=== PATIENT | male | born 1960 | race Caucasian/White ===

== ENCOUNTER 2018-01-16 11:12 | Emergency (ER) | payer MEDICAID, SELFPAY ==
[2018-01-16 11:17] VITALS: BP 182/104; PULSE 75; RESP 18; TEMP 37; O2SAT 97
--- NOTE | 2018-01-16 11:28 | DI.RAD_ITS ---
SYMPTOM/DIAGNOSIS: R PAIN AFTER FALL PA CHEST AND RIGHT RIBS: Comparison is made with chest x-ray dated 24 March 2010. The heart size is normal. The aorta is mildly tortuous. There is no evidence of pneumothorax. Lower ribs are not well seen due to technique and patient body habitus. There is a nondisplaced fracture of the right 9th rib. No pulmonary contusion or effusion is identified. IMPRESSION: Right 9th rib fracture.
--- NOTE | 2018-01-16 11:29 | W.ED.GENAD ---
Discharge Plan Disposition Patient Disposition: HOME Condition: Improving Discharge Details Chief Complaint: Chest/Rib Clinical Impression: Right rib fracture Primary Care Provider: Curt Pinzon ED Provider: Brandon Caro Home Meds and New Rx's Prescriptions: Continue ibuprofen [Advil Liqui-Gel] 200 MG capsule 200 - 400 mg PO Q6H PRN RF: 0 Discharge Instructions Instructions: Rib Fracture (ED) Additional Instructions: You have a nondisplaced rib fracture. Please use incentive spirometer as instructed. Please use Tylenol 975 mg every 6 hours and/or ibuprofen 800 mg every 8 hours. The next dose of ibuprofen will be at approximately 6 PM. Return if you develop a fever, shortness of breath, worsening pain or any other concerns Medical Decision Making 57-year-old male states he slipped and fell on Wednesday striking his right thorax and abdomen. He did not have loss of consciousness, but has had some mild, dull, achy discomfort since that time. Today while sitting in a chair he sneezed and then developed worsening right posterior chest pain that is sharp and cramping. Denies any shortness of breath. He arrives with no fever, normal oxygenation, in some distress with moderate hypertension. Patient given ketorolac IM and referred for x-ray. Lucency identified in 2 ribs which overlap. The fracture is either in the anterior eighth rib or in the posterior lateral ninth rib. Findings consistent with nondisplaced rib fracture. Patients pain improved with ketorolac, no evidence of underlying lung injury. Management with the patient. Stable for discharge. Pot use of incentive spirometer prior to discharge HPI General Mode of arrival: ambulatory. Date/Time Provider Initiated Documentation: 01/16/18 11:13. Limitations to Documentation: no limitations. Information obtained by: patient and family. History of Present Illness 57 year old M presents to the emergency department with the chief complaint of Right lateral chest pain after fall on Wednesday, worse after sneezing, described as moderate, Quality is described as aching, and is localized to the chest and right. Patient reports no radiation. Patient started experiencing this day(s) and it has been constant. Rest improves symptom(s), Movement worsens symptoms . Patient notes denies headaches, nausea/vomiting and shortness of breath. Related Data Home Medications Medication Instructions Recorded Confirmed ibuprofen [Advil] 200 - 400 mg PO Q6H PRN tab-cap 03/17/16 01/16/18 Allergies Allergy/AdvReac Type Severity Reaction Status Date / Time HAY/GRASS Allergy Intermediate NASAL Uncoded 01/16/18 11:21 CONGESTION General Stated Complaint: Chest/Rib LITA: 3 Review of Systems Review of Systems 6 systems reviewed and otherwise - [facility] Medical History Allergic asthma Social History Smoking/Tobacco Use Status: Former Tobacco Use Surgical History Hemiarthroplasty (02/29/12) Exam Narrative Exam Narrative: GEN: awake, alert, oriented 3. Pleasant, well groomed, interactive. HEAD: Normocephalic, atraumatic ENT: Mucous membranes moist, oropharynx unremarkable, External ear exam unremarkable EYES: PERRL, EOMI NECK: Full ROM, no ANTONI, no menigismus CHEST/RESP: Tender in the right mid axillary line approximately T5-T6, clear to auscultation bilateral, no wheeze/rhonchi/rales CARDIOVASCULAR: RRR, no murmur, rub joesph. 2+ Rad pulse bilateral ABDOMEN: Soft, nontender, no mass. +Bowel sounds Back: No midline tenderness, step-off, deformity. No significant flank tenderness per EXT: Full ROM, no edema, no rash Neuro: Grossly normal neurologic exam, conversant, interactive. Psych: Speech fluent, thoughts congruent, affect normal Course Vital Signs Temperature 37.0 C 01/16/18 11:17 Pulse 75 01/16/18 11:17 Respiratory Rate 18 01/16/18 11:17 Blood Pressure 182/104 H 01/16/18 11:17 Pulse Oximetry 97 01/16/18 11:17 Temperature 37.0 C 01/16/18 11:17 Temperature Source Temporal Artery Scan 01/16/18 11:17 Pulse 75 01/16/18 11:17 Respiratory Rate 18 01/16/18 11:17 Respiratory Effort Non-Labored 01/16/18 11:20 Blood Pressure 182/104 H 01/16/18 11:17 Blood Pressure Position Sitting 01/16/18 11:17 Pulse Oximetry 97 01/16/18 11:17 Oxygen Delivery Method Room Air 01/16/18 11:17 Oxygen Flow Rate 0 01/16/18 11:17 Pain Level 7 01/16/18 11:17
[2018-01-16] MEDS: Ketorolac 30 MG/ML VIAL 60 MG IM (11:35)
--- NOTE | 2018-01-16 12:13 | DI.VRAD_ITS ---
EXAM: XR Right Ribs with PA Chest, 3 Views EXAM DATE/TIME: 01/16/2018 12:00 PM CLINICAL HISTORY: 57 years old, male; Pain; Chest wall pain; Patient HX: R pain after fall TECHNIQUE: XR Right ribs 3 views with PA chest. COMPARISON: No relevant prior studies available. FINDINGS: Lungs: Unremarkable. No consolidation. Pleural space: Unremarkable. No pleural effusion. No pneumothorax. Heart/Mediastinum: Unremarkable. No cardiomegaly. Bones/joints: Left humeral prosthesis Degenerative changes in the left glenohumeral joint Lucency identified in 2 ribs which overlap. The fracture is either in the anterior eighth rib or in the posterior lateral ninth rib. Findings consistent with nondisplaced rib fracture. IMPRESSION: Lucency identified in 2 ribs which overlap. The fracture is either in the anterior eighth rib or in the posterior lateral ninth rib. Findings consistent with nondisplaced rib fracture. Dictated and Authenticated by: Dylan Lazar MD. Ordering:ABRAHAM SHERIDAN MD
[2018-01-16 12:31] VITALS: BP 140/86; PULSE 76; RESP 14; O2SAT 97
== END 2018-01-16 12:34 | disposition home or self-care (01) ==
LOC: ER 12:47
PROVIDERS: Emergency Provider Emergency Medicine; PCP Family Medicine
DX: S22.31XA Fracture of one rib, right side, initial encounter for closed fracture (principal); W00.0XXA Fall on same level due to ice and snow, initial encounter; I10 Essential (primary) hypertension
CPT/HCPCS: 96372; 99284; 71046; 71100; J1885

== ENCOUNTER 2018-05-26 12:04 | Outpatient (CLI) | payer MEDICAID, SELFPAY ==
--- NOTE | 2018-05-26 12:01 | DI.RAD_ITS ---
SYMPTOMS/DIAGNOSIS: PAIN LEFT KNEE: Medial tibial femoral joint space narrowing, articular sclerosis and periarticular hypertrophic spurring are demonstrated. Also patellofemoral joint DJD is evident. The findings are consistent with severe left knee DJD. RIGHT KNEE: Medial tibial femoral joint space narrowing, articular sclerosis and periarticular hypertrophic spurring are demonstrated. Also patellofemoral joint DJD is evident. These findings are consistent with severe DJD.
== END 2018-05-26 12:24 ==
PROVIDERS: PCP Family Medicine; Visit Provider Physician Assistant Surgical
DX: M25.561 Pain in right knee (principal); M25.562 Pain in left knee; M17.0 Bilateral primary osteoarthritis of knee
CPT/HCPCS: 73560

== ENCOUNTER 2019-02-17 08:13 | Emergency (ER) | payer MEDICAID, SELFPAY ==
[2019-02-17 08:16] VITALS: BP 165/103; PULSE 102; RESP 20; TEMP 36.4; O2SAT 95
--- NOTE | 2019-02-17 08:31 | ED.GENADUL_ITS ---
Discharge Plan Disposition Patient Disposition: HOME Condition: Improving Discharge Details Chief Complaint: Nausea/Vomit/Diar Clinical Impression: Gastroenteritis Primary Care Provider: Curt Pinzon ED Provider: Soraya Whitt Home Meds and New Rx's Prescriptions: New promethazine 25 mg tablet 25 mg PO TID PRN (Reason: nausea and vomiting) Qty: 10 RF: 0 Discharge Instructions Instructions: Gastroenteritis (ED) Additional Instructions: Drink plenty of fluids. Rest activities as tolerated. Observe for any signs of dehydration. Use nausea medication as prescribed if needed for nausea or vomiting. If not improving in the next 1 to 2 days please have reevaluation with your primary care doctor or return to the emergency room for any alarming symptoms, increase in abdominal pain or worsening. Please follow-up with PCP for repeat of your labs as they were somewhat abnormal as discussed. Discharge Data Discharge Date/Time-TO BE ENTERED AT DEPARTURE: 02/17/19 12:22 Medical Decision Making Is a 58-year-old patient who presents for nausea vomiting diarrhea for the last 24 hours. Patient reports weight loss, decreased urine output, fatigue and malaise. Reports associated chills but no measured fevers. On exam patient does have notable epigastric discomfort but no peritoneal signs of his abdomen. Patient does have pharyngeal erythema which is likely due to several episodes of vomiting however will check strep to be sure no associated pharyngeal infection. Patient does appear mildly dehydrated. IV fluids ordered as well as baseline labs and nausea medication. Patient agrees with plan of care. Rapid strep testing is negative. Review of patient's lab results reveal elevated H&H. Likely this is hemoconcentration as patient is quite dehydrated at this time. Mild leukocytosis present 12.61. Urinalysis does reveal moderate bilirubin. Patient has persistent nausea a second dose of Zofran was provided. Second liter of IV fluid provided given patient has some persistent symptoms at this time. Patient reevaluated and mild persistent nausea especially when sitting up. Patient was provided Phenergan in attempt to obtain better nausea management. Patient did feel somewhat improved after Phenergan. Patient does still report epigastric discomfort. Patient reports mild improvement. At this time discussed with patient further evaluation including repeat labs and addition of CT scan of his abdomen to be sure there is no other significant intra-abdominal abnormality however patient would prefer discharge home at this time as he does feel mildly improved and would prefer to defer any additional imaging or testing and closely observe at home and continue to hydrate at home. Patient reports if he has persistence of symptoms, increase or worsening of symptoms he will have reevaluation in the emergency room to extend his work-up. Patient was made aware of mild abnormalities noted on labs and did encourage reevaluation with PCP for repeat lab work which I do feel is warranted although likely the lab abnormalities are likely due to hemoconcentration as patient did appear dehydrated this finding was discussed with Dr. Robles who agrees.. Patient's vital signs are improved at this time. The patient was stable and requested discharge. Prior to discharge, my usual and customary return precautions were reviewed with the patient - this included follow-up instructions and reasons to return to the Emergency Department if conditions worsens, does not improve as e xpected, or other new concerns arise. HPI General Date/Time Provider Initiated Documentation: 02/17/19 08:15 . HPI Narrative: Is a 58-year-old patient who presents to the emergency room today for complaints of nausea vomiting and diarrhea which began yesterday morning. Patient reports 24 hours of symptoms. Patient reports several episodes of vomiting approximately every 3 hours. Denies any blood in the vomitus, reports of bilious vomitus. Patient reports mild epigastric pain associated which is intermittent. Does fully relieve between episodes of vomiting. Patient does also report diarrhea which was watery, nonbloody noted yesterday, improved today. Patient denies significant headache or dizziness. Patient does report chills but no measured fever. No obvious sick contacts. Denies cough, difficulty breathing, shortness of breath. Denies significant sore throat or nasal congestion. No other concerns or complaints at this time. Patient does report he lost approximately 10 pounds in the last 24 hours. Patient denies any other concerns or complaints at this time Related Data Home Medications Medication Instructions Recorded Confirmed promethazine 25 mg PO TID PRN #10 tab 02/17/19 Previous Rx's Medication Instructions Recorded promethazine 25 mg PO TID PRN #10 tab 02/17/19 Allergies Allergy/AdvReac Type Severity Reaction Status Date / Time HAY/GRASS Allergy Intermediate NASAL Uncoded 02/17/19 08:21 CONGESTION General Stated Complaint: Nausea/Vomit/Diar LITA: 3 Review of Systems All systems reviewed & are unremarkable except as noted in HPI and below Constitutional Constitutional: Reports chills, Reports fatigue, Denies fever(s), Denies headache(s) and Reports malaise ENT Ears, Nose, Mouth, and Throat: Denies otalgia, Denies headache(s) and Denies sore throat Cardiovascular Cardiovascular: Denies dyspnea on exertion Respiratory Respiratory: Denies cough and Denies dyspnea on exertion Gastrointestinal Gastrointestinal: Reports abdominal pain, Denies constipation, Reports cramping, Reports diarrhea, Reports nausea and Reports vomiting Neurologic Neurologic: Denies headache(s) Endocrine Endocrine: Reports fatigue [facility] Medical History Allergic asthma Social History Smoking/Tobacco Use Status: Former Tobacco Use Drug use: Never Current gender identity: male Do you feel safe in your relationship?: Yes Exam Narrative Exam Narrative: CONST: Alert and alert. HENMT: Head nomocephalic, normal to inspection. Atraumatic. Hearing grossly normal. TMs appear normal bilaterally. Pharyngeal erythema present. No exudates. No uvula swelling. EYES: General normal appearance. Alignment normal. Eyelids normal. Conjunctiva normal. NECK: Normal visual inspection. FROM. Trachea midline. No Midline tenderness. No cervical lymphadenopathy CHEST: Normal insepection of the chest. RESP: Normal respiratory effort. Speaking full sentences. No cough. No audible wheezing. No retractions. GI: Bowel sounds present in all 4 quadrants. Mild epigastric pain with palpation. No other site of pain with palpation through the abdomen. No peritoneal signs, rebound or guarding. SKIN: Normal. Dry. No rashes. Course Vital Signs Vital signs: Vital Signs Temperature 36.4 C L 02/17/19 08:16 Pulse 102 H 02/17/19 08:16 Respiratory Rate 20 02/17/19 08:16 Blood Pressure 165/103 H 02/17/19 08:16 Pulse Oximetry 95 02/17/19 08:16 Temperature 36.4 C L 02/17/19 08:16 Temperature Source Skin 02/17/19 08:16 Pulse 102 H 02/17/19 08:16 Respiratory Rate 20 02/17/19 08:16 Respiratory Effort 02/17/19 08:19 Blood Pressure 165/103 H 02/17/19 08:16 Blood Pressure Position Sitting 02/17/19 08:16 Pulse Oximetry 95 02/17/19 08:16 Oxygen Delivery Method Room Air 02/17/19 08:16 Oxygen Flow Rate 0 02/17/19 08:16 Pain Level 2 02/17/19 08:16
[2019-02-17 08:40] LABS: Abs Immature Grans 0.04 k/cumm (0.0-0.09); Absolute Eosinophil Count 0.04 k/cumm (0.0-0.7); Absolute Lymphocyte Count 1.31 k/cumm (1.2-3.4); Absolute Monocyte Count 0.83 k/cumm (0.11-0.7); Absolute Neutrophil Count 10.37 k/cumm (1.2-6.7); Basophils % 0.2; Eosinophils % 0.3; HCT 56.3 % (40.0-50.0); Immature Grans % 0.3; Lymphocytes % 10.4; Mean Corp. HGB Concentration 35.3 g/dL (32.0-36.0); Mean Corpuscular Hemoglobin 30.8 pg (27.0-33.0); Mean Platelet Volume 11.7 fL (8.0-11.0); Monocytes % 6.6; Neutrophils % 82.2; Platelet Count 167 x1000/uL (130-400); RBC 6.47 m/cumm (4.50-6.00); RBC Distribution Width 13.2 % (11.8-14.1); White Blood Cell Count 12.61 k/cumm (4.4-10.8)
[2019-02-17] MEDS: Ondansetron 4 MG/2 ML VIAL IVP (08:40)
[2019-02-17] MEDS: Normal Saline 1,000 ML 1000 ML IV ×2 (08:40→10:10)
[2019-02-17] MEDS: Normal Saline Flush 10 ML SYR IVP (08:40)
[2019-02-17 08:44] LABS: Absolute Basophil Count 0.03 k/cumm (0.0-0.2)
[2019-02-17 08:49] LABS: HGB 19.9 g/dL (13.5-17.5)
[2019-02-17 08:52] LABS: ALT 57 U/L (16-63); AST 33 U/L (15-37); Albumin 3.9 g/dL (3.4-5.0); Alkaline Phosphatase 103 U/L (46-116); Anion Gap 11.1 mmol/L (3-11); BUN 18 mg/dL (7-18); Bilirubin, Total 1.1 mg/dL (0.2-1.0); CO2 27.9 mmol/L (21.0-32.0); CREATININE 0.84 mg/dL (0.70-1.30); Calcium 9.8 mg/dL (8.5-10.1); Chloride 103 mmol/L (98-107); Glucose 175 mg/dL (74-106); Lipase 221 U/L (73-393); Potassium 3.9 mmol/L (3.5-5.1); Sodium 142 mmol/L (136-145); Total Protein 7.8 g/dL (6.4-8.2)
[2019-02-17 09:04] LABS: Diff Comment RBC Morph Reviewed; RBC Morphology Normal
[2019-02-17 09:12] LABS: Bilirubin Moderate (Negative); Blood Negative (Negative); Clarity Clear (Clear); Glucose Negative (Negative); Ketones 15 mg/dL (Negative); Leukocyte Esterase Negative (Negative); Nitrite Negative (Negative); Specific Gravity >= 1.030 (1.005-1.025); Urobilinogen 0.2 EU/dL (Up TO 0.2); pH 5.5 (5-8)
[2019-02-17 09:23] LABS: Bacteria Few HPF (Negative); Casts 0-2 Hyaline LPF (Negative); Crystals Negative HPF (Negative); Epithelial Cells Rare HPF (Negative); Mucus Moderate (Negative); RBC Negative HPF (0-2); WBC 0-2 HPF (0-5)
[2019-02-17 09:24] LABS: C & S Indicated? No
[2019-02-17 09:30] VITALS: BP 159/104; PULSE 102; RESP 18; TEMP 36.4; O2SAT 95
[2019-02-17] MEDS: Ondansetron 4 MG/2 ML VIAL (10:16)
[2019-02-17 10:45] VITALS: BP 152/85; PULSE 72; RESP 15; TEMP 36.6; O2SAT 95
--- NOTE | 2019-02-17 10:48 | NUR.NOTE ---
As per the order of Edgar the negative POC strep was discarded Colleen Rodriguez
[2019-02-17] MEDS: ACETAMINOPHEN 1,000 MG/100 ML BTL 400 MG IVPB (10:59)
[2019-02-17 11:42] VITALS: BP 168/97; PULSE 78; RESP 15; TEMP 36.6; O2SAT 96
[2019-02-17 12:07] VITALS: BP 168/97; PULSE 78; RESP 15; TEMP 36.6; O2SAT 96
== END 2019-02-17 12:22 | disposition home or self-care (01) ==
PROVIDERS: Emergency Provider Physician Assistant; PCP Family Medicine
DX: R10.13 Epigastric pain (principal); K52.9 Noninfective gastroenteritis and colitis, unspecified; E86.0 Dehydration
CPT/HCPCS: 36415; 80053; 83690; 96361; 96365; 96375; 96376; 99284; 81003; 81015; 85025; 87081; J0131; J2405

== ENCOUNTER 2020-02-29 09:19 | Outpatient (CLI) | payer MEDICAID, SELFPAY ==
--- NOTE | 2020-02-29 09:00 | DI.RAD_ITS ---
EXAM: XR STANDING ALIGNMENT CLINICAL HISTORY: pre TKA alignment exam. TECHNIQUE: 2D digital imaging was performed. COMPARISON: There are advanced degenerative changes in the knees, most prominent in the medial cristina rtments where there is [id number] apposition and marginal osteophytes. Hips appear unremarkable. The level of the ankles there is a bony excrescence of the medial aspect left talus. Talar dome appe ars unremarkable. No lytic osseous lesions. FINDINGS: IMPRESSION: DATA REPOSITORY: RADIATION DOSE DELIVERED:
--- NOTE | 2020-02-29 09:00 | DI.RAD_ITS ---
EXAM: XR KNEE LT 1V CLINICAL HISTORY: pre TKA exam. TECHNIQUE: 2D digital imaging was performed. COMPARISON: CR XR knee RT 2V AP,lat from 05/26/2018 FINDINGS: Single lateral view the left knee reveals advanced osteoarthritic degenerative changes. Small joint effusion. Mild prepatellar swelling as well as some swelling anterior to the patellar ligament. No osseous lesions seen on this single view. IMPRESSION: DATA REPOSITORY: RADIATION DOSE DELIVERED:
== END 2020-02-29 09:39 ==
PROVIDERS: PCP Family Medicine; Referring Provider Family Medicine; Visit Provider Student in an Organized Health Care Education/Training Program
DX: M17.12 Unilateral primary osteoarthritis, left knee (principal); M25.462 Effusion, left knee
CPT/HCPCS: 73560; 77073

== ENCOUNTER 2020-03-29 01:01 | Outpatient (CLI) | payer MEDICAID, SELFPAY ==
[2020-03-29 09:19] LABS: HCT 53.8 % (40.0-50.0); MCH 31.9 pg (27.0-33.0); MCHC 35.3 % (32.0-36.0); MCV 90.4 fL (80-95); MPV 11.5 fL (8.0-11.0); RBC 5.95 10^6/uL (4.36-5.78); RDW 11.9 % (11.8-14.1); RDW-SD 39.7 fL; WBC 7.46 10^3/uL (4.4-10.8)
[2020-03-29 09:31] LABS: Hemoglobin A1C 5.4 % (<5.7)
[2020-03-29 09:49] LABS: Anion Gap 10.8 mmol/L (3-11); BUN 17 mg/dL (7-18); CO2 24.2 mmol/L (21.0-32.0); CREATININE 0.8 mg/dL (0.70-1.30); Calcium 9.3 mg/dL (8.5-10.1); Chloride 104 mmol/L (98-107); Glucose 126 mg/dL (74-106); Potassium 4.5 mmol/L (3.5-5.1); Sodium 139 mmol/L (136-145)
[2020-03-29 09:52] LABS: Platelet Count 122 10^3/uL (130-400)
== END 2020-03-29 01:02 | disposition home or self-care (01) ==
LOC: LBO 01:02
PROVIDERS: Visit Provider Student in an Organized Health Care Education/Training Program
DX: M25.561 Pain in right knee (principal); M25.562 Pain in left knee; M17.0 Bilateral primary osteoarthritis of knee; Z01.818 Encounter for other preprocedural examination; Z01.812 Encounter for preprocedural laboratory examination; R73.09 Other abnormal glucose
CPT/HCPCS: 36415; 80048; 85027; 83036

== ENCOUNTER 2020-03-29 01:02 | Outpatient (CLI) | payer MEDICAID, SELFPAY ==
[2020-03-30 11:31] LABS: COVID-19 RT-PCR UVMMC Result Negative (Negative)
== END 2020-03-29 01:03 | disposition home or self-care (01) ==
LOC: LBO 01:03
PROVIDERS: Visit Provider Student in an Organized Health Care Education/Training Program
DX: Z20.822 Contact with and (suspected) exposure to COVID-19 (principal); Z01.818 Encounter for other preprocedural examination
CPT/HCPCS: U0003

== ENCOUNTER 2020-04-02 06:15 | Day surgery (SDC) | payer MEDICAID, SELFPAY ==
[2020-04-02] VITALS (8 sets, daily range): BP systolic 118–150; BP diastolic 71–96; PULSE 57–72; RESP 13–24; TEMP 36–36.4; O2SAT 96–98
[2020-04-02] MEDS: Acetaminophen 500 MG TAB 1000 MG PO (06:52)
[2020-04-02] MEDS: Celecoxib 200 MG CAP 400 MG PO (06:52)
[2020-04-02] MEDS: Gabapentin 300 MG CAP PO (06:53)
[2020-04-02] MEDS: Lactated Ringers 1,000 ML 80 ML IV (07:05)
--- NOTE | 2020-04-02 07:35 | DSE_ITS ---
Documented by User: Viviana Kinneyxon 04/02/20 07:42 DS: Diagnosis Discharge Diagnosis (1) Primary osteoarthritis of left knee: Status: Acute Discharge Plan Disposition Patient Disposition: HOME Condition: Good Discharge Details Reason For Visit: Left knee DJD Attending Provider: Mitchel Sheridan Primary Care Provider: Jakub Martin Home Meds and New Rx's Prescriptions: New acetaminophen 500 mg tablet 500 mg PO Q6H PRN (Reason: pain) Qty: 60 RF: 2 aspirin 81 mg tablet,delayed release (DR/EC) 81 mg PO BID 30 Days Qty: 60 RF: 0 docusate sodium [Colace] 100 mg capsule 100 mg PO BID Qty: 30 RF: 0 gabapentin 300 mg capsule 300 mg PO QHS Qty: 14 RF: 0 ibuprofen 600 mg tablet 600 mg PO TID PRN (Reason: pain) Qty: 60 RF: 2 pantoprazole 40 mg tablet,delayed release (DR/EC) 40 mg PO DAILY Qty: 30 RF: 0 tramadol 50 mg tablet 50 mg PO Q4H PRN (Reason: severe postoperative pain) Qty: 18 RF: 0 Continued cholecalciferol (vitamin D3) 25 mcg (1,000 unit) capsule 25 mcg PO DAILY RF: 0 turmeric root extract 500 mg capsule 500 mg PO DAILY RF: 0 promethazine 25 mg tablet 25 mg PO TID PRN (Reason: nausea and vomiting) Qty: 10 RF: 0 calcium carbonate [Tums] 200 mg calcium (500 mg) Tablet,Chewable 1 mg PO PRN PRNRF: 0 Discontinued ibuprofen 600 mg tablet 1,000 mg PO PRN PRNRF: 0 Discharge Instructions Additional Instructions: Total Knee Discharge Instructions Activity: The most important activity is to walk. You should try to take short walks a few times a day. It is important that when resting you work on keeping the knee straight. Avoid putting a pillow behind the knee as this will encourage flexion. Work on range of motion exercises as provided by Physical Therapy. - Start outpatient physical therapy within 2 weeks. - You should wear the WALTER hose on both legs for 2 weeks. Dressing: You may remove the Homero wrap on your leg 2 days after your surgery and put on the WALTER stocking given to you from the hospital. Keep the surgical dressing (underneath the HOMERO wrap) in place for at least one week. After the first week it may be removed and replaced with light gauze and tape or nothing. The wound and dressing may get wet after 3 days but avoid soaking the dressing or otherwise it will need to be changed. Many people prefer covering the dressing with cling wrap (saran wrap) to minimize it from getting soaked. If it gets wet, just pat dry. If it starts to peel off then it will need to be changed. Medications: - You should take Tylenol and anti-inflammatory ibuprofen as your primary pain control medications. - You have been prescribed a stronger pain medication Tramadol for breakthrough pain, take as needed as prescribed. - You have been prescribed gabapentin to take at night. - You have also been prescribed a stomach acid reduction agent Pantoprozole to help reduce stomach acid and reflux. - You will be taking Aspirin 81mg twice a day for DVT prevention unless instructed otherwise. - If you have constipation you should take Colace (which was prescribed) or Miralax (which you may purchase [id number]). It takes most people 3-4 days to have a bowel movement. Follow-up: 2 weeks If you have any acute concerns or questions, please do not hesitate to contact the office at [phone]. You may contact Dr. Sheridan with any questions after hours through the hospital at [phone] or on his cell phone at [phone]. Equipment/Supplies: Walker Activity:: Elevate Remove Dressings/Wound Care:: Do Not Remove Shower/Bathe:: 72 hours Diet:: As Tolerated Discharge Orders Discharge Orders: Discharge Order (Routine); Ordered 04/02/20 Ordered By: Mitchel Sheridan DS: Data Vitals/I&O Vitals and I&O: Vital Signs Temperature 36.3 C L 04/02/20 06:18 Pulse 71 04/02/20 06:18 Pulse Rhythm Regular 04/02/20 06:18 Respiratory Rate 18 04/02/20 06:18 Respiratory Depth Normal 04/02/20 06:18 Blood Pressure 148/92 H 04/02/20 06:18 Pulse Oximetry 96 04/02/20 06:18 Oxygen Delivery Method Room Air 04/02/20 06:18 Oxygen Flow Rate 0 04/02/20 06:18 Pain Level 2 04/02/20 06:18 Intake & Output 04/01/20 04/01/20 04/02/20 11:59 23:59 11:59 Weight 130.635 kg 131.7 kg PFSH Medical History Allergic asthma Surgical History Hemiarthroplasty (02/29/12) LEFT HUMERAL CAP Social History Smoking/Tobacco Use Status: Current every day Tobacco Type: cigarettes Tobacco: How many years used: 30 Smoking risk assessment performed?: Yes Alcohol Intake: current Alcohol Intake frequency: 3 or more drinks per day Alcohol type: beer Drug use: Never Substance use type: does not use Details: Pt states 3-4 beers daily Current gender identity: male Do you feel safe at home: Yes Do you feel safe in your relationship?: Yes Documented by User: Mitchel Sheridan MD 04/02/20 11:32 Date of service: 04/02/20 Time of Service: 11:31 Discharge Plan Disposition Patient Disposition: HOME Condition: Good Discharge Details Reason For Visit: Left knee DJD Attending Provider: Mitchel Sheridan Primary Care Provider: Jakub Martin Home Meds and New Rx's Prescriptions: New acetaminophen 500 mg tablet 500 mg PO Q6H PRN (Reason: pain) Qty: 60 RF: 2 aspirin 81 mg tablet,delayed release (DR/EC) 81 mg PO BID 30 Days Qty: 60 RF: 0 docusate sodium [Colace] 100 mg capsule 100 mg PO BID Qty: 30 RF: 0 gabapentin 300 mg capsule 300 mg PO QHS Qty: 14 RF: 0 ibuprofen 600 mg tablet 600 mg PO TID PRN (Reason: pain) Qty: 60 RF: 2 pantoprazole 40 mg tablet,delayed release (DR/EC) 40 mg PO DAILY Qty: 30 RF: 0 tramadol 50 mg tablet 50 mg PO Q4H PRN (Reason: severe postoperative pain) Qty: 18 RF: 0 Continued cholecalciferol (vitamin D3) 25 mcg (1,000 unit) capsule 25 mcg PO DAILY RF: 0 turmeric root extract 500 mg capsule 500 mg PO DAILY RF: 0 promethazine 25 mg tablet 25 mg PO TID PRN (Reason: nausea and vomiting) Qty: 10 RF: 0 calcium carbonate [Tums] 200 mg calcium (500 mg) Tablet,Chewable 1 mg PO PRN PRNRF: 0 Discontinued ibuprofen 600 mg tablet 1,000 mg PO PRN PRNRF: 0 Discharge Instructions Additional Instructions: Total Knee Discharge Instructions Activity: The most important activity is to walk. You should try to take short walks a few times a day. It is important that when resting you work on keeping the knee straight. Avoid putting a pillow behind the knee as this will encourage flexion. Work on range of motion exercises as provided by Physical Therapy. - Start outpatient physical therapy within 2 weeks. - You should wear the WALTER hose on both legs for 2 weeks. Dressing: You may remove the Homero wrap on your leg 2 days after your surgery and put on the WALTER stocking given to you from the hospital. Keep the surgical dressing (underneath the HOMERO wrap) in place for at least one week. After the f irst week it may be removed and replaced with light gauze and tape or nothing. The wound and dressing may get wet after 3 days but avoid soaking the dressing or otherwise it will need to be changed. Many people prefer covering the dressing with cling wrap (saran wrap) to minimize it from getting soaked. If it gets wet, just pat dry. If it starts to peel off then it will need to be changed. Medications: - You should take Tylenol and anti-inflammatory ibuprofen as your primary pain control medications. - You have been prescribed a stronger pain medication Tramadol for breakthrough pain, take as needed as prescribed. - You have been prescribed gabapentin to take at night. - You have also been prescribed a stomach acid reduction agent Pantoprozole to help reduce stomach acid and reflux. - You will be taking Aspirin 81mg twice a day for DVT prevention unless instructed otherwise. - If you have constipation you should take Colace (which was prescribed) or Miralax (which you may purchase [id number]). It takes most people 3-4 days to have a bowel movement. Follow-up: 2 weeks If you have any acute concerns or questions, please do not hesitate to contact the office at [phone]. You may contact Dr. Sheridan with any questions after hours through the hospital at [phone] or on his cell phone at [phone]. Equipment/Supplies: Walker Activity:: Elevate Remove Dressings/Wound Care:: Do Not Remove Shower/Bathe:: 72 hours Diet:: As Tolerated Discharge Orders Discharge Orders: Discharge Order (Routine); Ordered 04/02/20 Ordered By: Mitchel Sheridan DS: Summary Time Spent with Patient providing and/or coordinating discharge services: Less than 30 minutes Status at Discharge Functional status at discharge: uses cane/walker Overall status at discharge: patient is progressing back to baseline Mental Status: mental status grossly normal Speech and Movement: speech and movement normal Mood: congruent mood Affect: normal affect Exam Psych Mental Status: mental status grossly normal Speech and Movement: speech and movement normal Mood: congruent mood Affect: normal affect [facility] Medical History Allergic asthma Surgical History Hemiarthroplasty (02/29/12) LEFT HUMERAL CAP Social History Smoking/Tobacco Use Status: Current every day Tobacco Type: cigarettes Tobacco: How many years used: 30 Smoking risk assessment performed?: Yes Alcohol Intake: current Alcohol Intake frequency: 3 or more drinks per day Alcohol type: beer Drug use: Never Substance use type: does not use Details: Pt states 3-4 beers daily Current gender identity: male Do you feel safe at home: Yes Do you feel safe in your relationship?: Yes
[2020-04-02] MEDS: ceFAZolin 3,000 MG in Normal Saline 100 ML 200 MG IVPB (08:11)
[2020-04-02] MEDS: Ketorolac 30 MG/ML VIAL (09:50)
[2020-04-02] MEDS: Bupivacaine 0.25% Pres-Free 30 ML VIAL (09:50)
[2020-04-02] MEDS: Normal Saline 20 ML VIAL (09:50)
--- NOTE | 2020-04-02 11:21 | ROE_ITS ---
Date of service: 04/02/20 Time of Service: 10:21 Operative Note Operative Note DATE OF PROCEDURE: 04/02/20 PRE-OP DIAGNOSIS: Left Knee Osteoarthritis POST-OP DIAGNOSIS: same PROCEDURE: Left Total Knee Replacement SURGEON: Mitchel Sheridan WELDER FITTER GAS: Viviana Colin ANESTHESIA: regional and spinal ESTIMATED BLOOD LOSS: 300 PATHOLOGY: none sent TOURNIQUET TIME: 0 COMPLICATIONS: None Patient was transported to: PACU Patient's condition: stable Implants: 1. Depuy Attune Cementless Posterior Stabilized Femoral Component, Size 7 2. Depuy Attune Cementless Rotating Platform Tibial Component, Size 7 3. Depuy Attune 7x8mm CR/RP Poly 4. Depuy Attune Patellar Component, Size 38mm Indications: I have seen Jorge Luis in clinic for symptoms of knee arthritis, confirmed with radiographic findings. Jorge Luis has exhausted nonoperative methods and was having significant limitations in daily function and desired better function and less pain. I discussed the technical details of a knee replacement. I explained the risks of the procedure to include, but not limited to, bleeding, infection, pain, stiffness, fracture, damage to nerves and vessels, damage to muscles and tendons, loosening, need for repeat procedure, blood clot and cardiopulmonary demise. Despite these risks, he elected to proceed. Findings: There was significant signs of arthritis throughout the knee. Notable medial femur and tibia wear was present. There was also an osteochondral defect of the lateral femur. Procedure Description: Jorge Luis was greeted in the preoperative holding area where the correct side was identified and marked. The consent was reviewed with the patient and signed. The history and physical was updated. All questions were answered. Preoperative medications were administered: Acetaminophen 1000mg, Celebrex 400mg, and Gabapentin 300mg. An adductor canal block was then administered by the anesthesia team in the PACU. Jorge Luis was taken back to the operating room. A spinal anesthestic was then administered. The patient was placed into the supine position on the operating room table. A nonsterile tourniquet was placed high onto the leg but only used for cementing. Posts were placed for positioning during the procedure. All bony prominences were well padded. Prophylactic antibiotics in the form of Cefazolin were administered. 1g of Tranxemic Acid was given intravenously within 30 minutes of incision. The left leg was then prepped with Chloraprep and draped in a standard fashion with impervious stockinette. A second prep with Chloraprep was performed prior to application of Iodine impregnated skin protection. A timeout to confirm correct identity, side and site, procedure, allergies, anesthesia, and medical concerns was performed. With the knee in some flexion, a midline incision was made overlying the knee. Full thickness skin flaps were raised once the extensor mechanism was encountered. These were raised medially and laterally. Any bleeding was controlled with electrocautery. Once the extensor mechanism was fully exposed, a medial parapatellar arthrotomy was performed in a flexed position. All bleeding from the arthrotomy and the geniculate arteries was coagulated. A medial subperiosteal peel was performed with electrocautery to the midcoronal plane. Due to the significant varus deformity the entire medial tibial plateau was exposed. The fat pad was removed while keeping the patellar tendon protected. The anterior distal femur synovium was removed for later visualization. The ACL and PCL were resected and the anterior horn of the lateral meniscus was transected. The knee was then flexed with the patella everted. Large osteophytes from the tibia were removed. Large osteophytes from the femur were removed. Using a step drill, and based on preoperative templating, the femoral canal was entered. This was done with a step drill without any difficulty. The intramedullary distal femoral cut guide was inserted, set to a 5 degree valgus cut and 9mm cut thickness. The distal femoral cut guide was then held in position and pinned. With the soft tissues protected, the distal cut was performed. This was passed over a few times to ensure a planar cut. I then turned attention to the tibia. The extramedullary guide was placed onto the leg. The distal aspect was slid medial to adjust for position of center of ankle and stay in line with shaft of the tibia. Approximately 3-5 degrees of posterior slope was kept in the proximal cutting guide. The center of the guide was aligned with the PCL. The stylus was used to assess cut thickness. The medial side, most involved side, was set for a 4mm cut. This was then held in position and pinned into place with 2 additional pins and a cross pin for stability. The medial and lateral collateral ligaments were protected and the cut was performed. With this completed, it was assessed and noted to be of appropriate dimensions. The guide was removed. A spacer block was inserted and the knee was brought into extension. The 7mm spacer block provided full extension, without hyperextension and with stability of both the medial and lateral collateral ligaments was assessed. The pins from the femur and the tibia were then removed. The distal femur was then sized. The anterior stylus was placed onto the lateral ridge of the anterior femur. This indicated a size 7 femur. The external rotation of the guide was adjusted to 3 degrees to match the epicondylar axis, perpendicular to Trisha?s line. The 4-in-1 cutting guide was the placed. The posterior medial femur cut was evaluated and appeared of good thickness. The spacer block was inserted underneath the cutting guide and stability was tested in 90 degrees of flexion. At this point there was some excess laxity medially in flexion and the lateral gap was quite tight. I removed the pins from the guide and redid the rotational alignment and recessed the popliteus. The 4-in-1 cutting guide was then replaced and the flexion gap was rechecked. This was much more stable with about 2mm of gapping medially. An christopher wing was used to confirm appropriate position of the anterior cut to avoid notching. This cutting guide was ensured to be flush on the cut surface and then pinned into place with headed pins. While protecting the soft tissues, quad tendon, and collateral ligaments, the anterior and posterior cuts were performed with a saw. The central two pins were removed and the posterior and anterior chamfers were cut next. Given the slight increase in laxity medially, I decided to proceed with a posterior stabilized implant. The notch-cutting guide was placed. This was pinned to lateralize the femoral component as much as possible while keeping it flush on the cut surface. This was then pinned into position. A reciprocating saw was used to make the notch cut. A rasp smoothed the cut surfaces. The medial and lateral menisci were removed. A trial femoral component was then inserted, impacted down to the cut surfaces, and the lug holes were drilled. A provisional trial tibial component was placed and the knee was brought through range of motion. There was noted to be excellent extension and flexion. There was no significant instability. The polyethylene was trialed until there was good flexion and extension with excellent stability to the medial and lateral collaterals. The patella was tracking without thumbs. A size 8mm polyethylene component provided the best range of motion and stability with less than 2mm gapping with medial and lateral stress and full extension without significant hyperextension. The tibial cut surface was fully exposed. The tibia was then sized as a 7. The tibia had been previously marked during trialing to correspond to the center of the tibial component to help with rotation. The trial was aligned to this shaniqua, approximately rotated to the medial 1/3rd of the tibial tubercle. The trial was pinned into place. The tibia was prepared with a reamer and a keel punch and lug holes. The knee was then brought into extension and the patella was measured as 26mm. Using the patellar clamp and cut guide, this was resected to a flat surface with at least 13mm of thickness remaining. The size 38 patella fit the best. This was oriented and then clamped into position. The lugs were drilled. The trial components were removed. The final components were opened on the back table. The periosteal and capsular tissues, especially posteriorly, around the knee were then systematically injected with a periarticular cocktail consisting of 50cc 0.25% Marcaine, 30mg Ketorolac, 20cc of Exparal and 50cc of injectable saline. The knee was thoroughly irrigated with a pulse lavage and dried. Irrisept was also used to irrigate the tissues. On the back table, with the implants opened, the cement was mixed. One batche of high viscosity cement were prepared with vacuum assistance. After the cement was ready a small amount was placed on the cut surface of the patella and the patellar button was clamped into position and held. During this process attention was turned to the gutters of the knee and for all interfaces for any excess cement. While the cement was hardening, the cementless knee components were placed. Starting with the tibial component, the tibia was subluxed anteriorly and the lug holes of the component were lined up. The tibia was then impacted with an impactor and mallet until the tibial component was in contact with the tibia. Then, the femoral component was inserted. The lug holes were aligned and the component was impacted into position. The knee was irrigated with Irrisept chlorhexadine solution. This was allowed to sit in the knee for 3 minutes. After the cement had finally cured, approximately 15min, the clamp was removed from the patella and the knee was taken through range of motion. The patella was tracking with a no-thumbs technique. The real 7x8mm posterior stabilized imp lant was then inserted. The capsule was then reapproximated with a No. 1 Vicryl at multiple locations. The capsule was finally closed with a No. 2 Stratafix, barbed suture. The tourniquet was then released and the arthrotomy appeared watertight without significant bleeding. The second dosing of 1g TXA was started. Deep tissues were then reapproximated with 0 Vicryl and 2-0 Monocryl. The skin was closed with a running 3-0 Monocryl in a subcuticular fashion. This was reinforced with skin glue. A Mepilex silver dressing was applied along with a [id number] DILCIA wrap. A CryoCuff was applied. Jorge Luis was transferred to the hospital bed without difficulty an suffering no apparent complication. Jorge Luis has a good prognosis. Physical therapy will start today and without restrictions, weight-bearing as tolerated. Aspirin 81mg BID will be used for DVT prophylaxis.
[2020-04-02] MEDS: fentaNYL 100 MCG/2 ML VIAL IVP (11:28)
[2020-04-02] MEDS: traMADol 50 MG TAB PO (12:12)
--- NOTE | 2020-04-02 12:45 | IN_ITS ---
Date of service: 04/02/20 Time of Service: 12:45 PT Notes Visit Reasons: Left knee DJD Physical Therapy Day Surgery Initial Evaluation Date: 04/02/2020 Referring Doctor: BETTY Neff PT Orders: PT CONSULT: Status post Ortho surgery. Precautions: WBAT on left LE. Patient Profile/Admitting Diagnosis: +[age]-year-old male with degenerative joint disease of the left knee and status post left total knee arthroplasty on postoperative day 0. PMHX: Medical History Allergic asthma Surgical History Hemiarthroplasty (02/29/12) LEFT HUMERAL CAP Social History/Home Situation: Lives with in a private home with 4 steps to enter with a rail on the right going up. There is another set of 13 steps to the second floor of the house where their bedroom is, rail on the right side going up. Independent with all aspects of ADLs prior to surgery. Owns a business with . Equipment Owned/DME: Front wheel walker, bilateral axillary crutches. Subjective: Agreeable to PT consult. Reports stiffness in the back of the left knee. Reports no pain. Denies headache, chest pain, and dizziness throughout. Objective: General Observation: Supine in bed. Cryo/Cuff on left knee. Homero wraps on left LE. IV in left UE. Mental Status: Alert and oriented x4. Pain: 1/10 in the left knee with ambulation activity. ROM: Right Upper Extremity: Shoulder Flexion has up to 90 degrees of active movement. Shoulder abduction has up to 90 degrees of active movement. Elbow flexion WFL. Wrist flexion WFL. Functional opening and closing of hand WFL. Left Upper Extremity: Shoulder Flexion has up to 90 degrees of active movement. Shoulder abduction has up to 90 degrees of active movement. Elbow flexion WFL. Wrist flexion WFL. Functional opening and closing of hand WFL. Right Lower Extremity: Hip flexion WFL. Hip abduction WFL. Knee flexion WFL. Ankle dorsiflexion WFL. Ankle plantarflexion WFL. Left Lower Extremity: Hip flexion WFL. Hip abduction WFL. Knee flexion allows up to 100 degrees from 10 degrees of knee flexion. Knee extension 10 degrees. Ankle dorsiflexion WFL. Ankle plantarflexion WFL. Strength: Right Upper Extremity: Shoulder flexors 3-/5. Shoulder abductors 3-/5. Elbow flexors 5/5. Elbow extensors 5/5. Musical Instrument Maker strong. Left Upper Extremity: Shoulder flexors 3-/5. Shoulder abductors 3-/5. Elbow flexors 5/5. Elbow extensors 5/5. Musical Instrument Maker strong. Right Lower Extremity: Hip flexors 5/5. Hip abductors 5/5. Knee flexors 5/5. Knee extensors 5/5. Ankle dorsiflexors 5/5. Ankle plantarflexors 5/5. Left Lower Extremity:Hip flexors 5/5. Hip abductors 5/5. Knee flexors 3-/5. Knee extensors 3-/5. Ankle dorsiflexors 5/5. Ankle plantarflexors 5/5. Sensation: Intact and light touch on bilateral lower extremities. Bed Mobility/Transfers: Rolling independent Supine to sit independent Sit to supine independent Sit to stand standby assist Stand to sit standby assist Bed to chair standby assist Chair to bed standby assist Gait: Guided patient through level surface ambulation of up to 200 feet using front wheeled walker with contact-guard assist of PT and standby assist of nurse Phelps. Heel toe step to gait pattern with report of 1/10 pain and stiffness in the left knee. Stairs: Instructed patient with up-and-down 8 x 4 inch steps while holding onto the right rail with 1 hand and using single-point cane with the other hand requiring contact-guard assist and standby assist of nurses Lencho and Ramandeep for safety. Step to gait pattern with report of 1?2/10 pain in the left knee that subsided with rest. Balance: Static Sitting: Normal Dynamic Sitting: Normal Static Standing: Good Dynamic Standing: Fair Special Tests: Mobility Limitations Standardized Measure [facility] AM-PAC 6 clicks Basic Mobility Inpatient Short Form: Raw Score: 23 CMS Score: 11% deficit Informed Consent/Education: Patient instructed in purpose of PT consult. Packet containing TKA exercise protocol has been given to patient. Education and training on initial set of exercises that can be done at home have been completed with patient. Assessment: Jorge Luis requires the use of a front wheeled walker for all mobility ADL performance in order to promote independence and reduce fall risk at home. He will have the support of his as he recovers at home. Demonstrates good understanding of HEP. Patient presents with clinical signs and symptoms consistent with current/admitting diagnoses that have resulted to mobility limitations, gait instability, generalized weakness, and impairment of motor control as demonstrated by the following impairment level findings: 1. Decreased strength to left knee major muscle groups 2. Limitation of joint range of motion in left knee Impairments are contributing to the following functional limitations: 1. Inability to safely ambulate without assistive device Patient is assessed as a 34856 moderate complexity based on the following: History: 59-year-old mALE with impairment level findings, functional limitations, and past medical history as indicated above Examination: Demonstrable impairment in strength, balance, and mobility level with underlying impairments and functional limitations as documented above Presentation: Evolving Decision Makin moderate complexity Goals: N/A. PT evaluation and 1-2 treatment sessions only for functional mobility training using recommended AD and for HEP instruction. Plan of Care/Treatment Plan: N/A. PT evaluation and 1-2 treatment session only for functional mobility training using recommended AD and for HEP instruction. DISCHARGE RECOMMENDATIONS: Home when medically cleared by orthopedic surgeon. Outpatient PT services in order to facilitate return to premorbid independent level without an assistive device. TREATMENT CODE/TIME: 57121 x 25 minutes, 18479 x 15 minutes beginning at 12:45 PM. Thank you for the opportunity to participate in the care of this patient. Mirna Chery PT, DPT, CLT [facility] [place], [place]
== END 2020-04-02 14:32 | disposition home or self-care (01) ==
PROVIDERS: PCP Family Medicine; Visit Provider Student in an Organized Health Care Education/Training Program
PROC: (CPT 27447; principal; 2020-04-02 07:45)
DX: M17.12 Unilateral primary osteoarthritis, left knee (principal); Z96.652 Presence of left artificial knee joint; G89.18 Other acute postprocedural pain; F17.210 Nicotine dependence, cigarettes, uncomplicated; M25.562 Pain in left knee
CPT/HCPCS: 27447; C1776; 76942; 97162; 97530; NC; J0690; J1885; J2001; J2250; J2405; J3010

== ENCOUNTER 2020-04-18 10:33 | Outpatient (CLI) | payer MEDICAID, SELFPAY ==
--- NOTE | 2020-04-18 10:15 | DI.RAD_ITS ---
EXAM: XR KNEE LT 1V CLINICAL HISTORY: 1st post op L TKA. TECHNIQUE: 2D digital imaging was performed. COMPARISON: CR XR KNEE LT 1V from 02/29/2020 FINDINGS: Appearance and alignment of the components of the recently placed prosthesis appears satisfactory. N o fractures nor evidence of obvious loosening. IMPRESSION: DATA REPOSITORY: RADIATION DOSE DELIVERED:
--- NOTE | 2020-04-18 10:15 | DI.RAD_ITS ---
EXAM: XR STANDING ALIGNMENT CLINICAL HISTORY: 1ST POST OP L TKA. TECHNIQUE: 2D digital imaging was performed. COMPARISON: CR XR STANDING ALIGNMENT from 02/29/2020 FINDINGS: There has been interval placement of a left knee prosthesis. Components appear to be in satisfactory position. No fracture or loosening. No radiographic evidence of osteomyelitis. There is advanced narrowing of the medial compartment of the opposite-right knee evident. Hips appear unremarkable as do the ankles. No osseous lesions noted. IMPRESSION: DATA REPOSITORY: RADIATION DOSE DELIVERED:
== END 2020-04-18 10:34 | disposition home or self-care (01) ==
LOC: DIORS 10:33
PROVIDERS: Visit Provider Student in an Organized Health Care Education/Training Program
DX: Z96.652 Presence of left artificial knee joint (principal)
CPT/HCPCS: 73560; 77073

== ENCOUNTER 2020-06-14 09:54 | Outpatient (CLI) | payer MEDICAID, SELFPAY ==
--- NOTE | 2020-06-14 09:22 | DI.RAD_ITS ---
EXAM: XR SHOULDER RT COMPLETE 2+V CLINICAL HISTORY: right shoulder pain. TECHNIQUE: 2D digital imaging was performed. COMPARISON: CR LEFT SHOULDER COMPLETE from 03/16/2013 CR LEFT SHOULDER COMPLETE from 05/08/2014 CR XR ribs RT PA chest 3V from 01/16/2018 FINDINGS: BONES: There is old distal clavicle fracture. No acute fracture is present. No bony destructive lesi on is seen. JOINTS: No dislocation present. There are severe degenerative changes of the glenohumeral joint. Th ere is prominent inferior spurring. Humeral head appears normally positioned. SOFT TISSUE: Normal. IMPRESSION: Severe degenerative changes of the glenohumeral joint. DATA REPOSITORY: RADIATION DOSE DELIVERED:
== END 2020-06-14 09:55 | disposition home or self-care (01) ==
LOC: DIORS 09:54
PROVIDERS: Visit Provider Physician Assistant
DX: M25.511 Pain in right shoulder (principal); M19.011 Primary osteoarthritis, right shoulder
CPT/HCPCS: 73030

== ENCOUNTER 2021-04-03 10:55 | Outpatient (CLI) | payer MEDICAID, SELFPAY ==
--- NOTE | 2021-04-03 08:30 | DI.RAD_ITS ---
Exam(s) XR KNEE LT 2V AP,LAT EXAM: XR KNEE LT 2V AP,LAT CLINICAL HISTORY: annual f/u L TKA. TECHNIQUE: 2D digital imaging was performed. COMPARISON: CR XR KNEE LT 1V from 04/18/2020 FINDINGS: There is stable position alignment of the components of the prosthesis. No fracture or loosening fatoumata dent. IMPRESSION: DATA REPOSITORY: RADIATION DOSE DELIVERED:
== END 2021-04-03 10:56 | disposition home or self-care (01) ==
LOC: DIORS 10:56
PROVIDERS: Visit Provider Student in an Organized Health Care Education/Training Program
DX: Z96.652 Presence of left artificial knee joint (principal); Z47.1 Aftercare following joint replacement surgery
CPT/HCPCS: 73560

== ENCOUNTER 2021-07-11 02:04 | Outpatient (CLI) | payer MEDICAID, SELFPAY ==
[2021-07-11 12:37] LABS: Source Nasal/Nares
[2021-07-11 17:31] LABS: COVID-19 PCR Negative (Negative)
== END 2021-07-11 02:05 | disposition home or self-care (01) ==
LOC: LBO 02:04
PROVIDERS: PCP Nurse Practitioner Family; Visit Provider Surgery
DX: Z20.822 Contact with and (suspected) exposure to COVID-19 (principal); Z01.818 Encounter for other preprocedural examination
CPT/HCPCS: 87635

== ENCOUNTER 2021-07-14 11:15 | Day surgery (SDC) | payer MEDICAID, SELFPAY ==
--- NOTE | 2021-07-14 07:01 | W.COLOREPORT ---
Colonoscopy Report Date of procedure: 07/14/21 Pre-op diagnosis general: colon cancer screening and internal hemorrhoids Post-op diagnosis procedure note: other (polyps) Procedure: 1. Colonoscopy with polypectomy Surgeon: Sydni Valle Anesthesia Type: General:No Airway Estimated blood loss (mL): 2 Pathology: other (transverse polyp and sigmoid polyp x2) Complications: None Disposition: same day Indications: Mr. Yoon is a pleasant 60-year-old gentleman who is here today to discuss his first screening colonoscopy and also discussed treatment for his hemorrhoids.? We discussed the procedure of colonoscopy as well as hemorrhoid banding at the same time.? I reviewed the risks, benefits and complications.? I also discussed with him smoking cessation.? He did quit for 9 years prior and then restarted.? His blood pressure is elevated although not dangerously yet.? He does not want to start any medications at this point.? I did recommend that he get a blood pressure cuff and monitor his blood pressure daily around the same time.? He needs to increase activity and lose weight. My biggest concern is that he stated that he did aspirate at the time of his total knee procedure.? I have sent a note to anesthesia.? He denies any acid reflux.? He also most likely has undiagnosed sleep apnea. Risks, benefits and complications have been reviewed. Complications include but are not limited to bleeding, pain, perforation, missed small lesion/polyp, sore throat, aspiration and adverse reaction to the medications. Questions were entertained and answered to their satisfaction and they wished to proceed. No guarantees were given or implied. Proceed with colonoscopy under sedation and hemorrhoid banding Prep: Miralax/Dulcolax Procedure Start Time: 12:18 Procedure End Time: 12:41 Retraction Time: 16 minutes Findings: 3 small polyps Procedure Description: After informed consent was obtained the patient was taken to the procedure room and placed in a left decubitous position. Monitors were applied and a time out was done. The patients name, date of , procedure, allergies to medications and metal in their body was reviewed. The patient was then sedated. Once sedated and comfortable a rectal exam was done. External exam was normal. Internal exam revealed a normal sphincter tone and no palpable masses. The prostate felt smooth a enlarged. The scope was then introduced and retro-flexed. No internal hemorrhoids, polyps or masses were identified on retro-flexion. The scope was then advanced to the cecum without difficulty. The ileocecal vlave and appendiceal orifice were identified. The prep was adequate. The scope was then slowly retracted over 16 minutes back into the rectum. Polyps were removed with cold forceps in the transverse colon and sigmoid colon x2. There was mild sigmoid diverticulosis noted. The scope was removed and the patient was woken up and taken back to Same day surgery in stable condition. The patient tolerated the procedure well and there were no immediate complications. Follow up: The patient should follow up in 3-5 years unless they develop changes in bowel habits or other new gastrointestinal complaints.
--- NOTE | 2021-07-14 07:02 | W.PM.DSUDISC ---
Discharge Plan Disposition Patient Disposition: HOME Condition: Good Discharge Details Reason For Visit: Colonoscopy and hemorrhoid banding Attending Provider: Sydni Valle Primary Care Provider: Denys Rosa Home Meds and New Rx's Prescriptions: Continued cholecalciferol (vitamin D3) 25 mcg (1,000 unit) capsule 25 mcg PO DAILY turmeric root extract 500 mg capsule 500 mg PO DAILY calcium carbonate [Tums] 200 mg calcium (500 mg) Tablet,Chewable 1 mg PO PRN PRN acetaminophen 500 mg tablet 500 mg PO Q6H PRN (Reason: pain) Qty: 60 2RF ibuprofen 600 mg tablet 600 mg PO TID PRN (Reason: pain) Qty: 60 2RF Discontinued bisacodyl [Dulcolax (bisacodyl)] 5 mg tablet,delayed release (DR/EC) 5 mg PO ONCE Qty: 4 0RF Rx Instructions: Take according to provider's instructions for colonoscopy prep. polyethylene glycol 3350 17 gram/dose powder 17 g PO ONCE Qty: 238 0RF Rx Instructions: To be taken as directed by prescriber's office for colonoscopy prep. Discharge Instructions Instructions: Colorectal Polyps (DC) Additional Instructions: Findings: 3 small polyps Follow up: 3-5 years Please call if you develop: fevers >101.5 Nausea or Vomiting Abdominal pain that is not transient Rectal bleeding that is more then a tbsp A hard abdomen and inability to pass gas DAY SURGERY UNIT POST ENDOSCOPY INSTRUCTIONS Instructions for everyone who is given Anesthesia: For your safety, please do the following for the next 24 Hours: a. Do not drive or operate dangerous equipment b. Do not drink alcohol beverages or use any recreational drugs for the first 24 hours or while taking pain medications. The medications in your body may have a reaction that can be dangerous. c. Do not make any important decisions or sign any important papers 1. Generally there are no restrictions on your activity after a day or so has gone by, but you may feel a bit fatigued for a few days. 2. After you arrive home you may have a light meal and return to a normal diet as you can tolerate it without feeling sick to your stomach. 3. After surgery, you may feel pain or discomfort. This should be only transient, but if it persists please contact your doctor. 4. If there are any questions regarding the findings of your procedure, please feel free to contact your doctor. 6. If you are unable to contact your doctor with a problem, contact the hospital at [phone]. 7. Continue all your regular medications unless directed otherwise. I understand the above instructions and have no questions. Signature of Patient or Responsible Adult Escort Date/Time Name of Responsible Adult Escort Signature of Nurse Date/Time Activity:: Activity as Tolerated Diet:: As Tolerated Discharge Orders Discharge Orders: Discharge Order (Routine); Ordered 07/14/21 Ordered By: Sydni Valle
[2021-07-14 11:36] VITALS: BP 151/100; PULSE 74; RESP 18; TEMP 36.1; O2SAT 98
--- NOTE | 2021-07-14 11:39 | W.ANESPRE ---
General Info Date of Service Date Performed: 07/14/21 Height: 6 ft 3 in Weight: 127.006 kg Body Mass Index (BMI): 34.9 Surgical Procedure: Operation Date: 07/14/21 13:20 Proposed Procedure Side Surgeon p Colonoscopy w/Possible Hemorrhoid Banding Sydni Valle MD Meds Allergies and Home Medications Allergies Allergy/AdvReac Type Severity Reaction Status Date / Time HAY/GRASS Allergy Intermediate NASAL Uncoded 07/14/21 11:45 CONGESTION Home Medication Medication Instructions Recorded cholecalciferol (vitamin D3) 25 25 mcg PO DAILY 02/29/20 mcg (1,000 unit) capsule turmeric root extract 500 mg 500 mg PO DAILY 02/29/20 capsule acetaminophen 500 mg tablet 500 mg PO Q6H PRN pain #60 tabs 04/02/20 calcium carbonate 200 mg calcium 1 mg PO PRN PRN 04/02/20 (500 mg) chewable tablet (Tums) ibuprofen 600 mg tablet 600 mg PO TID PRN pain #60 tabs 04/02/20 bisacodyl 5 mg tablet,delayed 5 mg PO ONCE #4 tabs 06/24/21 release (Dulcolax (bisacodyl)) polyethylene glycol 3350 17 17 g PO ONCE #238 grams 06/24/21 gram/dose oral powder PFSH Active Problems Active Problems: Problem Status Onset Code Hypertension I10 Hemorrhoids K64.9 Screening for colon cancer Z12.11 Hemorrhoid prolapse K64.8 Medical History Medical History Arthritis of right glenohumeral joint Elevated hemoglobin Primary osteoarthritis of right knee Right shoulder pain Medical History Comments:: Per Pt. states during his knee surgery last time he aspirated Surgical History Surgical History Hemiarthroplasty (02/29/12) LEFT HUMERAL CAP History of total left knee replacement (04/02/20) Tobacco Smoking/Tobacco Use Status: Current every day Tobacco Type: cigarettes Alcohol Alcohol Intake: current Alcohol intake frequency: 3 or more drinks per day Alcohol type: beer Substance Use Substance use: Never Substance use type: does not use Vital Signs and Lab Results Lab Results Blood Type / Crossmatch: No Data to Display Complete Blood Count: No Data to Display Complete Metabolic Panel: No Data to Display Liver Function Panel: No Data to Display Coagulation Panel: No Data to Display Cardiac Panel: No Data to Display Arterial Blood Gas: No Data to Display Venous Blood Gas: No Data to Display Pancreas Panel: No Data to Display Thyroid Panel: No Data to Display Infectious Disease: Coronavirus (COVID-19)(PCR) Negative (Negative) 07/11/21 12:25 Coronavirus 2019 Source Nasal/Nares 07/11/21 12:25 Blood Cultures: No Data to Display Toxicology Panel: No Data to Display Anesthesia Assessment and Plan Anesthesia History Personal History: Other Family History: No Family History of Anesthesia Complications Exercise Tolerance Exercise Tolerance: Metabolic Equivalents>4 Pertinent Negatives Pertinent Negatives: No Symptoms of GERD, No Major Cardiovascular Symptoms or Complaints, No Major Pulmonary Symptoms or Complaints and No History of CVA/TIA Cardiac & Pulmonary Exam Cardiac Exam: Normal S1/S2 Heart Sounds Pulmonary Exam: Clear Bilateral Breath Sounds Implantable Cardiac Device Does patient have a Pacemaker or an ICD?: No Airway Exam Known Difficult Airway: No Mallampati Class: 2 Mouth Opening: Normal (> 3cm) Thyromental Distance: Greater than 3 cm Neck Range of Motion: Full ROM Neck Circumference: Normal Teeth Condition: Normal Dentition ASA Classification ASA Score: ASA 2 Emergency Case?: No NPO Status NPO Status: NPO Clears >2 hours, Solids >8 hours Anesthesia Plan Resuscitation Status: Full Code Anesthesia Technique: General Anesthesia Airway Planned: Natural Airway Monitors Used: Standard Monitors
[2021-07-14 11:57] VITALS: BMI 34.9
[2021-07-14] MEDS: Lactated Ringers 1,000 ML 80 ML IV (12:08)
--- NOTE | 2021-07-14 12:30 | BOWEL_PTH ---
PATIENT: Jorge Luis Yoon LOC: [facility] U#:[id number] AGE/SX: 60/M ROOM: RE07/14/[address]: Syndi Valle MD : [id number] BED: DIS: 07/14/2021 SPEC #: [id number] RECD: 07/14/21 18:08 STATUS: KRISHNA RE #: [id number] IAIN: 07/14/21 12:[address]: Sydni Valle DEPT: Surgical Specimen RECD BY: Meenakshi Ferrell ENTERED: 07/14/21 18:10 SP TYPE: Bowel OTHR DR: Denys Rosa, POLYTECHNIC REGISTRAR Tissues: 1 - BIOPSY BOWEL 2 - BIOPSY BOWEL Procedures: GROSS AND MICRO LEVEL 4 Comments: [id number]
[2021-07-14 12:45] VITALS: BP 136/86; PULSE 70; RESP 18; TEMP 36.3; O2SAT 97
--- NOTE | 2021-07-14 12:53 | W.ANESPOSTOP ---
Postoperative Evaluation Date, Time and Location Date Performed: 07/14/21 Time Performed: 12:54 Patient Location: Day Surgery Unit Vital Signs Most Recent Imported Vital Signs: Most Recent Vital Signs Temp Pulse Resp BP Pulse Ox 36.1 C L 74 18 151/100 H 98 07/14/21 11:36 07/14/21 11:36 07/14/21 11:36 07/14/21 11:36 07/14/21 11:36 Pain Score Most Recent Pain Score: Most Recent Pain Score Pain Level 0 07/14/21 11:36 Assessment Mental Status: Awake (Alert & Oriented to Patient Baseline) Airway and Respiratory Function: Patent airway with normal (patient baseline) respiratory exam Cardiovascular Function: Hemodynamically Stable Hydration Status: Adequately Hydrated Nausea & Vomiting: No Nausea or Vomiting Pain: Pt. Denies Any Pain Peripheral Nerve Block: Patient did not receive a nerve block
[2021-07-14 13:14] VITALS: BP 147/91; PULSE 63; RESP 18; TEMP 36; O2SAT 97
== END 2021-07-14 13:35 | disposition home or self-care (01) ==
PROVIDERS: PCP Nurse Practitioner Family; Visit Provider Surgery
PROC: 0DJD8ZZ Inspection of Lower Intestinal Tract, Via Natural or Artificial Opening Endoscopic (ICD-10-PCS; CPT 45378; principal; 2021-07-14 13:15)
DX: Z12.11 Encounter for screening for malignant neoplasm of colon (principal); K63.5 Polyp of colon; K57.30 Diverticulosis of large intestine without perforation or abscess without bleeding
CPT/HCPCS: 45380; 88305

== ENCOUNTER 2022-02-06 01:05 | Outpatient (CLI) | payer MEDICAID, SELFPAY ==
[2022-02-06 10:31] LABS: Abs Immature Grans 0.03 10^3/uL (0.0-0.06); Absolute Basophil Count 0.02 10^3/uL (0.0-0.2); Absolute Eosinophil Count 0.23 10^3/uL (0.0-0.7); Absolute Lymphocyte Count 1.29 10^3/uL (1.2-3.4); Absolute Monocyte Count 0.74 10^3/uL (0.1-0.8); Absolute Neutrophil Count 3.02 10^3/uL (1.2-6.7); Basophils % 0.4; Eosinophils % 4.3; HCT 54.8 % (40.0-50.0); Immature Grans % 0.6; Lymphocytes % 24.2; MCH 32.8 pg (27.0-33.0); MCV 94 fL (80-95); MPV 12.4 fL (8.0-11.0); Monocytes % 13.9; Neutrophils % 56.6; RBC 5.86 10^6/uL (4.36-5.78); RDW 11.8 % (11.8-14.1); RDW-SD 41.1 fL; WBC 5.33 10^3/uL (4.4-10.8)
[2022-02-06 10:36] LABS: Hemoglobin A1C 5.4 % (<5.7)
[2022-02-06 10:38] LABS: Calculated LDL 104 mg/dL (<100); Cholesterol 174 mg/dL (<200); HDL Cholesterol 47 mg/dL (40-60); Triglyceride 119 mg/dL (<150)
[2022-02-06 11:04] LABS: HGB 19.2 g/dL (13.5-17.5)
[2022-02-06 11:05] LABS: Platelet Count 79 10^3/uL (130-400)
[2022-02-06 21:34] LABS: PSA, Screening 0.8 ng/mL (<=3.5)
== END 2022-02-06 01:06 | disposition home or self-care (01) ==
LOC: LOS 01:05
PROVIDERS: PCP Nurse Practitioner Family; Visit Provider Nurse Practitioner Family
DX: R71.8 Other abnormality of red blood cells (principal); Z13.220 Encounter for screening for lipoid disorders; Z13.1 Encounter for screening for diabetes mellitus; Z12.5 Encounter for screening for malignant neoplasm of prostate
CPT/HCPCS: 36415; 80061; 84153; 83036; 85025

== ENCOUNTER 2022-02-12 02:18 | Outpatient (CLI) | payer MEDICAID, SELFPAY ==
[2022-02-14 11:32] LABS: Erythropoietin 6.1 mIU/mL (2.6 - 18.5)
[2022-02-17 12:24] LABS: JAK2 Result see interpretation
== END 2022-02-12 02:19 | disposition home or self-care (01) ==
LOC: LOS 02:18
PROVIDERS: PCP Nurse Practitioner Family; Visit Provider Nurse Practitioner Family
DX: D58.2 Other hemoglobinopathies (principal)
CPT/HCPCS: 36415; 82668; 81270

== ENCOUNTER 2024-04-26 03:46 | Outpatient (CLI) | payer MEDICAID, SELFPAY ==
[2024-04-26 08:42] LABS: HCT 54.2 % (40.0-50.0); MCH 32.9 pg (27.0-33.0); MCHC 35.2 % (32.0-36.0); MCV 93 fL (80-95); MPV 11.5 fL (8.0-11.0); RDW-SD 41.5 fL; WBC 6.22 10^3/uL (4.4-10.8)
[2024-04-26 08:55] LABS: Platelet Count 71 10^3/uL (130-400)
[2024-04-26 08:59] LABS: Hemoglobin A1C 5.7 % (<5.7)
[2024-04-26 09:03] LABS: Calculated LDL 105 mg/dL (<100); Cholesterol 171 mg/dL (<200); HDL Cholesterol 43 mg/dL (>or=40); Triglyceride 117 mg/dL (<150)
[2024-04-26 10:32] LABS: HGB 19.1 g/dL (13.5-17.5)
[2024-04-26 18:30] LABS: PSA, Screening 0.9 ng/mL (<=4.5)
== END 2024-04-26 03:47 | disposition home or self-care (01) ==
LOC: LBO 03:46
PROVIDERS: PCP Nurse Practitioner Family; Visit Provider Nurse Practitioner Family
DX: Z12.5 Encounter for screening for malignant neoplasm of prostate (principal); D58.2 Other hemoglobinopathies; Z13.220 Encounter for screening for lipoid disorders; Z13.1 Encounter for screening for diabetes mellitus
CPT/HCPCS: 36415; 80061; 84153; 85027; 83036

== ENCOUNTER 2024-05-08 01:09 | Outpatient (CLI) | payer MEDICAID, SELFPAY ==
--- NOTE | 2024-05-08 07:00 | DI.RAD_ITS ---
Exam(s) XR SHOULDER RT COMPLETE 2+V EXAM: XR SHOULDER RT COMPLETE 2+V CLINICAL HISTORY: Worsening rt shoulder pain,m25.511. TECHNIQUE: 2D digital imaging was performed. Five views. COMPARISON: CR XR SHOULDER RT COMPLETE 2+V from 06/14/2020 FINDINGS: BONES: No acute fracture is present. Old distal clavicular deformity. No bony destructive lesion is seen. JOINTS: No dislocation present. Severe narrowing glenohumeral joint, with a [id number] appearance. Prominent periarticular spurring subchondral cysts are arm a hernandez. Some flattening of the medial h umeral head. SOFT TISSUE: Normal. IMPRESSION: End-stage degenerative changes of the glenohumeral joint. Old distal clavicle fracture. DATA REPOSITORY: RADIATION DOSE DELIVERED:
== END 2024-05-08 01:29 ==
LOC: DI 01:09
PROVIDERS: PCP Nurse Practitioner Family; Visit Provider Nurse Practitioner Family
DX: M25.511 Pain in right shoulder (principal)
CPT/HCPCS: 73030

== ENCOUNTER 2024-10-20 01:14 | Outpatient (CLI) | payer MEDICAID, SELFPAY ==
[2024-10-20 12:32] LABS: HCT 54.6 % (40.0-50.0); MCH 32.8 pg (27.0-33.0); MCHC 34.8 % (32.0-36.0); MCV 94 fL (80-95); MPV 12.5 fL (8.0-11.0); Platelet Count 66 10^3/uL (130-400); RBC 5.79 10^6/uL (4.36-5.78); RDW 12.2 % (11.8-14.1); RDW-SD 42.4 fL; WBC 5.78 10^3/uL (4.4-10.8)
[2024-10-20 12:41] LABS: ALT 115 U/L (16-63); AST 59 U/L (15-37); Albumin 3.6 g/dL (3.4-5.0); Alkaline Phosphatase 120 U/L (46-116); Anion Gap 8.0 mmol/L (3-11); BUN 14 mg/dL (7-18); Bilirubin, Total 0.7 mg/dL (0.2-1.0); CO2 29.0 mmol/L (21.0-32.0); Calcium 9.2 mg/dL (8.5-10.1); Calculated LDL 106 mg/dL (<100); Chloride 102 mmol/L (98-107); Cholesterol 170 mg/dL (<200); Estimated GFR 100.06 (mL/min/1.73m2); Glucose 138 mg/dL (74-106); HDL Cholesterol 42 mg/dL (>or=40); Potassium 4.3 mmol/L (3.5-5.1); Sodium 139 mmol/L (136-145); Total Protein 7.5 g/dL (6.4-8.2); Triglyceride 111 mg/dL (<150)
[2024-10-20 12:49] LABS: HGB 19.0 g/dL (13.5-17.5)
[2024-10-20 12:58] LABS: Hemoglobin A1C 5.8 % (<5.7)
[2024-10-20 18:53] LABS: PSA, Screening 1.0 ng/mL (<=4.5)
== END 2024-10-20 01:15 | disposition home or self-care (01) ==
LOC: LOS 01:15
PROVIDERS: PCP Nurse Practitioner Family; Visit Provider Nurse Practitioner Family
DX: I10 Essential (primary) hypertension (principal); Z13.220 Encounter for screening for lipoid disorders; Z12.5 Encounter for screening for malignant neoplasm of prostate; D58.2 Other hemoglobinopathies; Z13.1 Encounter for screening for diabetes mellitus
CPT/HCPCS: 36415; 80053; 80061; 84153; 85027; 83036